=== PATIENT | male | born 1995 | race Caucasian/White ===

== ENCOUNTER 2016-08-20 18:53 | Emergency (ER) | payer OTHER ==
[~2016-08-20] VITALS: Ht 170.2 cm; Wt 67.5 kg
[2016-08-20 18:55] VITALS: Ht 170.2 cm; Wt 67.5 kg
[2016-08-20] MEDS ORDERED: ACETAMINOPHEN 325 MG TAB PO ONE (20:30)
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
[2016-08-20] MEDS ORDERED: NAPR-260 PO (20:37)
[2016-08-20] MEDS ORDERED: CYCL-319 PO (20:37)
[2016-08-20] MEDS ORDERED: ACET325T33 PO (20:37)
--- NOTE | 2016-08-20 21:03 | RADRPT ---
PROCEDURE: XR Forearm. CLINICAL INDICATION: Pain and swelling. TECHNIQUE: AP and lateral views of the right forearm were obtained. COMPARISON: No prior studies are available for comparison. FINDINGS: There is mild diffuse soft tissue swelling. The bony elements and joint spaces are normal. IMPRESSION: 1. Mild soft tissue swelling of the right forearm. 2. No evidence of a fracture foreign body or subcutaneous emphysema. RPTAT:AAJJ Physician Daniel Date Time Electronically viewed and signed by Josh Cobos Physician on 08/20/2016 21:03 EVANGELINA/
== END 2016-08-20 22:06 | disposition home or self-care (01) ==
LOC: FTE 18:53
DX: S01.511A Laceration without foreign body of lip, initial encounter (principal); S09.92XA Unspecified injury of nose, initial encounter; M79.601 Pain in right arm; V43.52XA Car driver injured in collision with other type car in traffic accident, initial encounter
CPT/HCPCS: 73090; Z7610